=== PATIENT | female | born 1935 | race Caucasian/White ===

== ENCOUNTER → 2017-01-13 | Outpatient (CLI) | payer MEDICARE, OTHER ==
[~2017-01-13] MED LIST: AMBI10TA PO; ATOR10 PO; FENO50TA PO; IRBE150T51 PO; OYST500T77 PO; PROT40TA PO; RALO1TAB13 PO; TAB-TAB PO; XYZA5TAB2 PO
--- NOTE | 2017-01-14 10:06 | RSPPFT ---
DATE OF PROCEDURE: 01/13/17 COMMENTS: Spirometry with FVC of 1.7 predicted 2.6, FEV1 of 0.9 predicted 1.8, FEV1/FVC ratio 58% predicted 80%. Lung volumes show air trapping with RV at 2.8 predicted 2.4. DLCO is within the predicted range. IMPRESSION: On the basis of the above, patient has a moderate obstructive lung defect with no acute response to bronchodilator treatment. Mild air trapping is present with an increased DLCO.
== END ==
LOC: HRSP 11:59
PROVIDERS: ATTEND Internal Medicine
DX: R06.02 Shortness of breath (principal)
CPT/HCPCS: 94060; 94726; 94729